=== PATIENT | female | born 1970 | race Two or more races ===

== ENCOUNTER 2016-10-24 02:34 | Emergency (ER) | payer MEDICAID ==
[~2016-10-24] VITALS: Ht 154.9 cm; Wt 90.7 kg
[2016-10-24 03:23] LABS: Basophils # (auto) 0 uL; Basophils % (auto) 0.3 % (0.0-2.0); CONDITION Y; DEFINITIVE SEE PRINTOUT; Eosinophils # (auto) 0.4 uL; Eosinophils % (auto) 4.3 % (0.0-7.0); Hematocrit 25.8 % (36.0-46.0); Hemoglobin 8.1 g/dL (12.2-16.2); Lymphocytes # (auto) 1.7 uL; Lymphocytes % (auto) 17.1 % (10.0-50.0); Mean Corpuscular Hemoglobin 23.4 pg (28.0-32.0); Mean Corpuscular Hgb Conc. 31.5 g/dL (32.0-36.0); Mean Corpuscular Volume 74.5 fL (80.0-100.0); Mean Platelet Volume 10.7 fL (7.4-10.4); Monocytes # (auto) 0.6 uL; Monocytes % (auto) 5.7 % (0.0-12.0); Neutrophils # (auto) 7.1 uL; Neutrophils % (auto) 72.6 % (37.0-80.0); Platelet Count (auto) 278 10^3/uL (140-450); Red Cell Distribution Width 18.4 % (11.6-16.0); White Blood Cell 9.8 10^3/uL (4.4-10.8)
[2016-10-24 03:40] LABS: INR 0.93 (0.9-1.15); Partial Thromboplastin Time 23.1 sec (22.64-33.71); Prothrombin Time 10.1 sec (9.37-12.3)
[2016-10-24 03:41] LABS: Albumin 3.3 g/dL (3.4-5.0); Anion Gap 10 (5-15); Aspartate Aminotransferase 16 U/L (15-37); BUN/Creatinine Ratio 11.1; Blood Urea Nitrogen 35 mg/dL (7-18); Calcium 7.4 mg/dL (8.5-10.1); Carbon Dioxide 19 mmol/L (21-32); Chloride 115 mmol/L (98-107); GFR African American 20 mL/min; GFR Non-African American 17 mL/min; Glucose 136 mg/dL (74-106); Magnesium 2.3 mg/dL (1.6-2.6); Potassium 3.4 mmol/L (3.5-5.1); Sodium 144 mmol/L (136-145)
[2016-10-24 03:46] LABS: Alkaline Phosphatase 109 U/L (45-117); Bilirubin, Total 0.2 mg/dL (0.2-1.0); Total Protein 7.7 g/dL (6.4-8.2)
[2016-10-24 03:50] LABS: B-Type Natriuretic Peptide 50.37 pg/mL (0-100)
[2016-10-24 03:51] LABS: Temperature: 22.1 C (20.0-25.0)
[2016-10-24 05:00] LABS: Urine Bilirubin Negative (Negative); Urine Blood Negative /uL (Negative); Urine Color Yellow (Yellow); Urine Glucose TRACE mg/dL (Normal); Urine Ketone Negative (Negative); Urine Nitrite Negative (Negative); Urine RBC 1 /hpf (0 - 4); Urine Squamous Epithelial Cell FEW /hpf (<5); Urine Urobilinogen Normal (Negative); Urine pH 5.5 (5.0-8.0)
[2016-10-24] MEDS ORDERED: ATENOLOL 50 MG TAB PO ONE (05:00)
[2016-10-24] MEDS ORDERED: AMLO5TAB2 PO (06:06)
[2016-10-24] MEDS ORDERED: ATEN50TA PO (06:06)
[2016-10-24] MEDS ORDERED: ENAL-3 PO (06:06)
[2016-10-24] MEDS ORDERED: NITROFURANTOIN (MONO) 100 mg CAP PO ONE (07:15)
[2016-10-24] MEDS ORDERED: LORazepam 0.5 MG TAB PO ONE (07:15)
[2016-10-24 07:49] VITALS: BP 139/80
== END 2016-10-24 08:04 | disposition home or self-care (01) ==
LOC: ER 02:34
DX: F41.9 Anxiety disorder, unspecified (principal); N39.0 Urinary tract infection, site not specified; I10 Essential (primary) hypertension; Z90.49 Acquired absence of other specified parts of digestive tract; Z79.899 Other long term (current) drug therapy; R06.02 Shortness of breath
CPT/HCPCS: 36415; 71010; 80053; 80307; 81001; 83735; 83880; 84443; 84484; 85025; 85610; 85730

== ENCOUNTER 2017-03-22 01:58 | Emergency (ER) | payer MEDICAID ==
[~2017-03-22] VITALS: Ht 152.4 cm; Wt 104.3 kg
[~2017-03-22 01:58] MED LIST: AMLO5TAB2 PO; ATEN50TA PO; ENAL-3 PO
[2017-03-22 02:54] LABS: Basophils # (auto) 0.1 uL; Hemoglobin 9.1 g/dL (12.2-16.2); Lymphocytes # (auto) 1.6 uL; Monocytes # (auto) 0.6 uL; Nucleated Red Blood Cells % 0.1 %; Platelet Count (auto) 255 10^3/uL (140-450)
[2017-03-22 02:55] LABS: Basophils % (auto) 0.8 % (0.0-2.0); Eosinophils # (auto) 0.9 uL; Eosinophils % (auto) 8.3 % (0.0-7.0); Hematocrit 29.5 % (36.0-46.0); Lymphocytes % (auto) 14.1 % (10.0-50.0); Mean Corpuscular Hemoglobin 23.3 pg (28.0-32.0); Mean Corpuscular Hgb Conc. 30.8 g/dL (32.0-36.0); Mean Corpuscular Volume 75.7 fL (80.0-100.0); Mean Platelet Volume 10.1 fL (6.9-10.8); Monocytes % (auto) 5.2 % (0.0-12.0); Neutrophils # (auto) 8.1 uL; Neutrophils % (auto) 71.6 % (37.0-80.0); Red Cell Distribution Width 18.1 % (11.8-14.3); White Blood Cell 11.4 10^3/uL (4.4-10.8)
[2017-03-22 03:10] LABS: Albumin 3.3 g/dL (3.4-5.0); Anion Gap 10 (5-15); Aspartate Aminotransferase 10 U/L (15-37); BUN/Creatinine Ratio 11.8; Blood Urea Nitrogen 38 mg/dL (7-18); Calcium 7.8 mg/dL (8.5-10.1); Carbon Dioxide 20 mmol/L (21-32); Chloride 111 mmol/L (98-107); GFR African American 20 mL/min; GFR Non-African American 17 mL/min; Glucose 144 mg/dL (74-106); INR 0.95 (0.9-1.15); Magnesium 2.3 mg/dL (1.6-2.6); Partial Thromboplastin Time 24.7 sec (22.64-33.71); Potassium 3.6 mmol/L (3.5-5.1); Prothrombin Time 10.3 sec (9.37-12.3); Sodium 141 mmol/L (136-145)
[2017-03-22 03:15] LABS: Alkaline Phosphatase 99 U/L (45-117); Bilirubin, Total 0.2 mg/dL (0.2-1.0); Total Protein 7.9 g/dL (6.4-8.2)
[2017-03-22 10:15] VITALS: BP 152/108
== END 2017-03-22 10:35 | disposition home or self-care (01) ==
LOC: ER 02:00
DX: I10 Essential (primary) hypertension (principal); F41.9 Anxiety disorder, unspecified; R42 Dizziness and giddiness; Z90.49 Acquired absence of other specified parts of digestive tract; Z79.899 Other long term (current) drug therapy
CPT/HCPCS: 36415; 70450; 80053; 83735; 84484; 85025; 85610; 85730; 93005

== ENCOUNTER 2018-11-06 01:26 | Emergency (ER) | payer MEDICAID ==
[~2018-11-06] VITALS: Ht 152.4 cm; Wt 95.3 kg
[~2018-11-06 01:26] MED LIST changes: +AMLO5TAB15 PO; -AMLO5TAB2 PO; -ENAL-3 PO; +ENAL10TA2 PO
[2018-11-06 01:32] VITALS: BP 159/85
== END 2018-11-06 03:25 | disposition left against medical advice (07) ==
LOC: ER 01:30
DX: R51 Headache (principal); M54.6 Pain in thoracic spine; Z53.21 Procedure and treatment not carried out due to patient leaving prior to being seen by health care provider; W18.09XA Striking against other object with subsequent fall, initial encounter; Y93.89 Activity, other specified; Y92.89 Other specified places as the place of occurrence of the external cause; Y99.8 Other external cause status
CPT/HCPCS: 70450; 71101

== ENCOUNTER 2020-01-28 05:46 | Inpatient (IN) | payer MEDICAID ==
[~2020-01-28] VITALS: Ht 152.4 cm; Wt 77.8 kg
[~2020-01-28 05:46] MED LIST changes: +ENAL10TA13 PO; -ENAL10TA2 PO
[2020-01-28] MEDS ORDERED: SODIUM CHLORIDE 0.9% 1,000 ML IV ONE (07:00)
[2020-01-28 07:28] LABS: Basophils # (auto) 0.1 10 ^3/uL (0-0.2); Basophils % (auto) 1.1 % (0.0-2.0); Eosinophils # (auto) 0.2 10 ^3/uL (0-0.8); Eosinophils % (auto) 2.3 % (0.0-7.0); Hematocrit 44.4 % (36.0-46.0); Hemoglobin 14.9 g/dL (12.2-16.2); Lymphocytes # (auto) 1.4 10 ^3/uL (0.4-5.4); Lymphocytes % (auto) 17.3 % (10.0-50.0); Mean Corpuscular Hemoglobin 33.8 pg (28.0-32.0); Mean Corpuscular Hgb Conc. 33.5 g/dL (32.0-36.0); Mean Corpuscular Volume 100.7 fL (80.0-100.0); Monocytes # (auto) 0.6 10 ^3/uL (0-1.3); Neutrophils # (auto) 5.7 10 ^3/uL (1.6-8.6); Neutrophils % (auto) 72.3 % (37.0-80.0); Platelet Count (auto) 221 10^3/uL (140-450); Red Cell Distribution Width 13.7 % (11.8-14.3); White Blood Cell 7.9 10^3/uL (4.4-10.8)
[2020-01-28 07:43] LABS: BUN/Creatinine Ratio 5.2; Calcium 10.5 mg/dL (8.5-10.1); INR 0.98 (0.9-1.15); Magnesium 3.1 mg/dL (1.6-2.6); Partial Thromboplastin Time 23.6 sec (23.0-31.2); Potassium 5.2 mmol/L (3.5-5.1)
[2020-01-28 07:47] LABS: Bilirubin, Total 0.4 mg/dL (0.2-1.0); Total Protein 8.5 g/dL (6.4-8.2)
[2020-01-28] MEDS ORDERED: LABETALOL HCL 5 MG/ML 4ML SYRINGE IV PRN (08:45)
[2020-01-28] MEDS ORDERED: MORPHINE SULF INJ 2 MG/ML SYRINGE 1ML IV PRN ×2 (08:45)
[2020-01-28] MEDS ORDERED: NITROGLYCERIN 0.4 MG SL TAB SL PRN (08:45)
[2020-01-28] MEDS ORDERED: ACETAMINOPHEN 500 MG TAB PO PRN (08:45)
[2020-01-28] MEDS ORDERED: SODIUM ZIRCONIUM CYCL 10 GM PAK PO ONE (08:45)
[2020-01-28] MEDS ORDERED: ONDANSETRON HCL 4 MG/2 ML VIAL IV PRN (08:45)
[2020-01-28] MEDS ORDERED: HYDROcodone-ACET 5/325MG TAB PO PRN (08:45)
[2020-01-28] MEDS: amLODIPine BESYLATE 5 MG TAB PO SCH (09:16)
[2020-01-28] MEDS: B-COMPLEX W/ C & FOLIC ACID(NEPHROVITE TAB) PO SCH (09:23)
[2020-01-28] MEDS: FAMOTIDINE 20 MG TAB PO SCH (09:28)
--- NOTE | 2020-01-28 10:50 | NUR ---
REPORT RECEIVED FROM JENNIFER BARRETO PATIENT WILL BE GOING TO [id number].
[2020-01-28] MEDS ORDERED: CALC667C PO (11:48)
[2020-01-28] MEDS ORDERED: ATOR10TA PO (11:48)
[2020-01-28] MEDS ORDERED: FURO1TAB33 PO (11:48)
--- NOTE | 2020-01-28 12:30 | NUR ---
THIS RN NOTIFIED THE PRIMARY RN THAT THE PATIENT NEEDS A MRSA SCREEN PER PROTOCOL FOR DIALYSIS TREATMENT.
[2020-01-28] MEDS: SEVELAMER 800 MG TAB PO SCH ×2 (12:34→18:52)
[2020-01-28 12:51] VITALS: BP 87/53
[2020-01-28] MEDS ORDERED: FURO40TA4 PO (14:09)
[2020-01-28] MEDS ORDERED: B-CO-5 PO (14:09)
[2020-01-28] MEDS ORDERED: ATOR20TA50 PO (14:18)
[2020-01-28] MEDS ORDERED: BUMETANIDE 2.5mg/10ml (0.25 mg/ml) INJ IV ONE (16:15)
[2020-01-28 16:34] VITALS: BP 119/84
--- NOTE | 2020-01-28 17:11 | NUR ---
LOW BP 95/ 56 ONE TIME BUMEX HELD.
--- NOTE | 2020-01-28 18:56 | NUR ---
CONSENTS AND CHECKLIST PRINTED IN THE CHART PER PATIENT SHE WILL WAIT TO SPEAK WITH THE SURGEON BEFORE SHE DECIDES FOR SURGERY, PER PATIENT SHE WILL HAVE A PERITONEAL CATHETER INSERTED BY HER MD IN TWO WEEKS.
--- NOTE | 2020-01-28 19:35 | NUR ---
Opening Shift Note Assumed care of patient, awake and alert. No S/S of distress/SOB or pain. Instructed on POC and to call for assist PRN. Bed in lowest locked position, call light within reach, side rails up x2, will continue to monitor for changes Q1hr and PRN.
[2020-01-28 22:00] VITALS: BP 91/61
[2020-01-29 05:00] VITALS: BP 94/61
[2020-01-29 05:59] LABS: Basophils # (auto) 0 10 ^3/uL (0-0.2); Basophils % (auto) 0.5 % (0.0-2.0); Eosinophils # (auto) 0.2 10 ^3/uL (0-0.8); Hematocrit 35.9 % (36.0-46.0); Hemoglobin 11.9 g/dL (12.2-16.2); Lymphocytes % (auto) 26.3 % (10.0-50.0); Mean Corpuscular Hemoglobin 33.4 pg (28.0-32.0); Mean Corpuscular Hgb Conc. 33.1 g/dL (32.0-36.0); Mean Corpuscular Volume 101.1 fL (80.0-100.0); Monocytes # (auto) 0.6 10 ^3/uL (0-1.3); Neutrophils # (auto) 4.6 10 ^3/uL (1.6-8.6); Neutrophils % (auto) 62.2 % (37.0-80.0); Platelet Count (auto) 171 10^3/uL (140-450); Red Blood Cells 3.56 10^6/uL (4.0-5.20); Red Cell Distribution Width 13.5 % (11.8-14.3); White Blood Cell 7.5 10^3/uL (4.4-10.8)
[2020-01-29 06:22] LABS: Potassium 5.1 mmol/L (3.5-5.1)
[2020-01-29 06:27] LABS: Calcium 9.1 mg/dL (8.5-10.1)
--- NOTE | 2020-01-29 06:36 | NUR ---
Critical lab Creatine 10.3. cdl truck driver hospitalist aware. No new orders received.
[2020-01-29] MEDS ORDERED: SODIUM CHL 0.9% 1000 ML BAG XX ONE (07:00)
[2020-01-29] MEDS: SEVELAMER 800 MG TAB PO SCH ×3 (08:00→17:37)
[2020-01-29 08:44] VITALS: BP 88/63
[2020-01-29] MEDS: amLODIPine BESYLATE 5 MG TAB PO SCH (08:52)
[2020-01-29] MEDS: B-COMPLEX W/ C & FOLIC ACID(NEPHROVITE TAB) PO SCH (08:52)
[2020-01-29] MEDS: FAMOTIDINE 20 MG TAB PO SCH (08:53)
--- NOTE | 2020-01-29 11:58 | NUR ---
RADIOLOGIST CONSULT CALLED RADIOLOGY DEPARTMENT INQUIRING ABOUT STATUS OF CONSULT. ACCORDING TO HABILITATION WORKER CONSULT HAS BEEN RECEIVED BY RADIOLOGIST AND WILL BE DONE TOMORROW MORNING.
[2020-01-29 13:00] VITALS: BP 98/66
[2020-01-29 16:39] VITALS: BP 99/70
--- NOTE | 2020-01-29 19:27 | NUR ---
Opening Shift Note Assumed care of patient after receiving report from Zulema BARRETO. Patient is awake and alert with no S/S of distress/SOB or pain. Call light within reach, bed in lowest position locked x2 side rails up. Instructed on POC and to call for assist PRN, will continue to monitor for changes Q1hr and PRN.
[2020-01-29 22:00] VITALS: BP 113/78
--- NOTE | 2020-01-30 04:46 | NUR ---
Complete linen change performed. Patient performed bed bath, unable to use CHG wipes due to listed allergy.
[2020-01-30 05:00] VITALS: BP 97/64
[2020-01-30 06:57] LABS: Basophils # (auto) 0 10 ^3/uL (0-0.2); Basophils % (auto) 0.4 % (0.0-2.0); Eosinophils # (auto) 0.2 10 ^3/uL (0-0.8); Eosinophils % (auto) 2.1 % (0.0-7.0); Hematocrit 37.8 % (36.0-46.0); Hemoglobin 12.6 g/dL (12.2-16.2); Lymphocytes # (auto) 1.9 10 ^3/uL (0.4-5.4); Lymphocytes % (auto) 22.4 % (10.0-50.0); Mean Corpuscular Hemoglobin 33.5 pg (28.0-32.0); Mean Corpuscular Hgb Conc. 33.2 g/dL (32.0-36.0); Mean Corpuscular Volume 100.9 fL (80.0-100.0); Monocytes # (auto) 0.4 10 ^3/uL (0-1.3); Monocytes % (auto) 5.3 % (0.0-12.0); Neutrophils # (auto) 5.9 10 ^3/uL (1.6-8.6); Neutrophils % (auto) 69.8 % (37.0-80.0); Nucleated Red Blood Cells % 0.2 %; Platelet Count (auto) 209 10^3/uL (140-450); Red Blood Cells 3.75 10^6/uL (4.0-5.20); Red Cell Distribution Width 13.5 % (11.8-14.3); White Blood Cell 8.5 10^3/uL (4.4-10.8)
[2020-01-30 07:18] LABS: Calcium 9.1 mg/dL (8.5-10.1); Potassium 5.5 mmol/L (3.5-5.1)
[2020-01-30 07:21] LABS: BUN/Creatinine Ratio 7.7
--- NOTE | 2020-01-30 07:46 | NUR ---
Critical lab called of BUN 987 and CREAT 12.6. Endorsed to susy, MARY LOU Gasca.
[2020-01-30] MEDS: SEVELAMER 800 MG TAB PO SCH ×3 (08:00→18:36)
[2020-01-30 09:00] VITALS: BP 109/73
[2020-01-30] MEDS: amLODIPine BESYLATE 5 MG TAB PO SCH ×2 (10:00→15:38)
[2020-01-30] MEDS ORDERED: fentaNYL CITRATE 100 MCG/2 ML VL ONE (11:22)
[2020-01-30] MEDS ORDERED: LIDOCAINE 2%HCL (LOCAL ANESTH.) INJ 20ML MDV ONE (11:23)
[2020-01-30] MEDS ORDERED: MIDAZOLAM HCL 1MG/1ML-2 ML VIAL ONE (11:23)
[2020-01-30] MEDS ORDERED: HEPARIN SODIUM (PORCINE) 5000 UNITS/ML 1ML VIAL ONE (11:24)
--- NOTE | 2020-01-30 14:59 | NUR ---
PAGED DR BAUM FOR DISCHARGE CLEARANCE. WAITING FOR CALL BACK .
--- NOTE | 2020-01-30 15:12 | NUR ---
PER DR HUERTAS, DIESEL ELECTRICIAN, PT IS CLEARED FOR DISCHARGE AFTER DIALYSIS TODAY.
[2020-01-30] MEDS: B-COMPLEX W/ C & FOLIC ACID(NEPHROVITE TAB) PO SCH (15:51)
[2020-01-30] MEDS: FAMOTIDINE 20 MG TAB PO SCH (15:52)
[2020-01-30 16:48] VITALS: BP 94/63
[2020-01-30 18:20] VITALS: BP 98/63
--- NOTE | 2020-01-30 18:30 | NUR ---
DIALYSIS STILL ONGOING. PT WILL WAIT TO EAT HER MEAL AFTER DIALYSIS. WILL CALL FOR HER RENAGEL WHEN SHE'S READY.
--- NOTE | 2020-01-30 19:00 | NUR ---
REPORT GIVEN TO MARY LOU RODRIGUEZ. MICHAEL IS AWARE THAT PT WILL CALL FOR HER RENAGEL WHEN SHE'S READY TO EAT.
--- NOTE | 2020-01-30 19:48 | NUR ---
MD DRUMMOND CONTACTED PATIENT'S BP FOLLOWING DIALYSIS 50S OVER 40S. PATIENT APPEARS LETHARGIC. WILL AWAIT CALL BACK OR ORDERS. Addendum: 01/30/20 at 1950 by MICHAEL BEAR RN RECEIVED CALL BACK FROM MD DRUMMOND, MONITOR PATIENT BP WILL TREND UPWARDS FOLLOWING DIALYSIS. PATIENT REASSESSED, BP 88/67. PATIENT APPEARS MORE ALERT AND ORIENTED AT THIS TIME. PER BHANU SCOTT, PATIENT CAN BE DC'D LATER TONIGHT ONCE BP RISES. IF BP REMAINS LOW, THEN HAVE 250 ML BOLUS NEEDED.
--- NOTE | 2020-01-30 21:53 | NUR ---
PATIENT BP ELEVATED TO 118/56. PATIENT STATES THAT THEY FEEL MUCH BETTER AND IS READY TO LEAVE. PAPERWORK FILLED OUT AND DISCHARGE PROCESS CONTINUED. PATIENT WILL BE DC'D WHEN FAMILY ARRIVES.
--- NOTE | 2020-01-30 22:30 | NUR ---
PATIENT DISCHARGED AT THIS TIME. PATIENT ALERT AND ORIENTED. PATIENT SHOWING NO SIGN OF DISTRESS, SHORTNESS OF BREATH, AND PATIENT DENIES ANY PAIN AT THIS TIME. PATIENT SENT HOME WITH FAMILY.
== END 2020-01-30 22:30 | disposition home or self-care (01) | DRG 466 ==
LOC: ER 05:46 → EDBD 05:46 → TELE 05:47 → TELE-WESTW 11:06
PROVIDERS: ADMIT Nurse Practitioner Acute Care; ATTEND Internal Medicine
PROC: 5A1D70Z Performance of Urinary Filtration, Intermittent, Less than 6 Hours Per Day (ICD-10-PCS; principal; 2020-01-30)
PROC: 0JH63XZ Insertion of Tunneled Vascular Access Device into Chest Subcutaneous Tissue and Fascia, Percutaneous Approach (ICD-10-PCS; 2020-01-30)
PROC: 02HV33Z Insertion of Infusion Device into Superior Vena Cava, Percutaneous Approach (ICD-10-PCS; 2020-01-30)
PROC: B5181ZA Fluoroscopy of Superior Vena Cava using Low Osmolar Contrast, Guidance (ICD-10-PCS; 2020-01-30)
PROC: B548ZZA Ultrasonography of Superior Vena Cava, Guidance (ICD-10-PCS; 2020-01-30)
DX: T82.42XA Displacement of vascular dialysis catheter, initial encounter (principal); I13.2 Hypertensive heart and chronic kidney disease with heart failure and with stage 5 chronic kidney disease, or end stage renal disease; N18.6 End stage renal disease; E87.5 Hyperkalemia; E11.22 Type 2 diabetes mellitus with diabetic chronic kidney disease; I50.9 Heart failure, unspecified; E83.52 Hypercalcemia; N25.81 Secondary hyperparathyroidism of renal origin; Z99.2 Dependence on renal dialysis; E66.9 Obesity, unspecified; D53.9 Nutritional anemia, unspecified; D63.1 Anemia in chronic kidney disease; Z82.49 Family history of ischemic heart disease and other diseases of the circulatory system; Z83.3 Family history of diabetes mellitus; E87.6 Hypokalemia; F41.9 Anxiety disorder, unspecified; Y84.1 Kidney dialysis as the cause of abnormal reaction of the patient, or of later complication, without mention of misadventure at the time of the procedure; Y92.89 Other specified places as the place of occurrence of the external cause; Z90.49 Acquired absence of other specified parts of digestive tract; Z68.33 Body mass index [BMI] 33.0-33.9, adult; Z88.8 Allergy status to other drugs, medicaments and biological substances
CPT/HCPCS: 36415; 71046; 76942; 80048; 80053; 83735; 84702; 85025; 85610; 85730; 87081; 90935; 96360; 99152; G0378; J2250